=== PATIENT | female | born 2000 | race Caucasian/White ===

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

== ENCOUNTER → 2019-02-14 | Outpatient (REF) | payer OTHER ==
[~2019-02-14] MED LIST changes: +NAPR-837 PO; -NAPR500T PO
== END ==
LOC: M WUC 08:18
PROVIDERS: ATTEND Physician Assistant
DX: N39.0 Urinary tract infection, site not specified (principal)